=== PATIENT | female | born 1955 | race African-American/Black ===

== ENCOUNTER → 2017-08-07 16:06 | Outpatient (CLI) | payer OTHER ==
[2013-01-10 07:33] VITALS: BMI 34.0
== END | disposition home or self-care (01) ==
LOC: D.MAMMO 07-12 16:00
DX: Z12.31 Encounter for screening mammogram for malignant neoplasm of breast (principal)

== ENCOUNTER 2019-07-16 07:12 | Outpatient (CLI) | payer MEDICARE, BC ==
[2013-01-10 07:33] VITALS: BMI 34.0
== END 2019-07-16 23:59 | disposition home or self-care (01) ==
LOC: D.MAMMO 07:12
PROVIDERS: ATTEND Emergency Medicine
DX: Z12.31 Encounter for screening mammogram for malignant neoplasm of breast (principal)

== ENCOUNTER 2019-08-13 09:00 | Outpatient (CLI) | payer MEDICARE, BC ==
[2013-01-10 07:33] VITALS: BMI 34.0
== END 2019-08-13 09:30 | disposition home or self-care (01) ==
LOC: D.MAMMO 09:00
PROVIDERS: ATTEND Emergency Medicine
DX: R92.8 Other abnormal and inconclusive findings on diagnostic imaging of breast (principal)